=== PATIENT | female | born 1985 | race Hispanic/Latino ===

== ENCOUNTER 2019-11-28 12:06 | Observation (INO) | payer BC, OTHER ==
[2019-11-28 12:45] VITALS: BP 111/72; TEMP 99; BMI 34.1
[2019-11-28] MEDS ORDERED: Lactated Ringer's 1,000 ML IV SCH (12:45)
[2019-11-28] MEDS ORDERED: Dextrose 5%-Lactated Ringers 1,000 ML IV SCH (12:45)
[2019-11-28] MEDS ORDERED: hydrALAZINE 20 MG/ML VIAL SLOW IVP PRN ×2 (12:45→16:17)
[2019-11-28] MEDS ORDERED: Betamet Acet/Betamet Na Ph 30 MG/5 ML VIAL IM SCH (12:45)
[2019-11-28] MEDS ORDERED: Ondansetron PF 4 MG/2 ML Vial IVP PRN (16:17)
[2019-11-28 18:39] LABS: Hemoglobin 12.3 g/dL (12.0-16.0); Mean Corpuscular HGB CONC 33.5 g/dL (32.0-36.0); Mean Corpuscular Hemoglobin 28.2 pg (27.0-31.0); Mean Corpuscular Volume 84.3 fL (78.0-98.0); Mean Platelet Volume 10.1 fL (7.4-10.4); Platelet Count 194 thou/uL (130-400); RBC Distribution Width 13.9 % (11.5-14.5); Red Blood Cell (RBC) Count 4.34 mill/uL (4.20-5.40); White Blood Cell (WBC) Count 10.4 thou/uL (4.8-10.8)
[2019-11-28 19:17] LABS: Syphilis Antibody Nonreactive (Nonreactive); Syphilis Antibody Index 0.09 S/CO (<1.00 Non-Reactive)
[2019-11-28 19:23] LABS: HBSAg Index 0.28 S/CO (0-0.99); Hep B Surf Ag Non-Reactive S/CO (NonReactive)
[2019-11-28] MEDS ORDERED: Morphine 10 MG/ML VIAL IM SCH (19:30)
[2019-11-28] MEDS ORDERED: Morphine 4 MG/ML VIAL SLOW IVP SCH (19:30)
[2019-11-28] MEDS ORDERED: Promethazine HCl 25 MG/ML VIAL IM SCH (19:45)
--- NOTE | 2019-11-29 09:05 | HP ---
PRIMARY PLANNING INTERN: Dr. Lisa Regalado. CHIEF COMPLAINT: Abdominal pain. HISTORY OF PRESENT ILLNESS: The patient is a 34-year-old, G3, P2 female with an intrauterine at 36 weeks and 2 days, who is presenting from the clinic this morning for concerns of possible labor. The patient has a history of 2 prior C-sections and breech presentation with this . The patient reports that she has been feeling painful contractions about once an hour when she first arrived with contractions more frequently seen on the monitor. On exam in the office, patient was reported to be 3-4 cm dilated. On arrival, the patient confirmed that she experiences painful contractions about once an hour. She denies any vaginal bleeding or leakage of fluid. She denies any recent illness, fever, fall, headache, chest pain, shortness of breath, nausea, vomiting, diarrhea, constipation, hip problems, knee problems, muscle weakness. She denies any vaginal bleeding, leakage of fluid, urinary urgency or frequency. PAST MEDICAL HISTORY: Negative. PAST SURGICAL HISTORY: She has had 2 prior C-sections. SOCIAL HISTORY: Denies drug, alcohol, tobacco use. ALLERGIES: NO KNOWN DRUG ALLERGIES. MEDICATIONS: vitamins. OB LABS: Blood type is O positive. Antibody screen is negative. VDRL is nonreactive. Hepatitis B surface antigen is nonreactive. She is rubella immune. Diabetes screen is 96. Third trimester VDRL nonreactive. She is GBS negative. REVIEW OF SYSTEMS: Per HPI. PHYSICAL EXAMINATION: VITAL SIGNS: Blood pressure 111/72, heart rate of 71, respiratory rate 18, temperature 99.0. GENERAL: She appears to be in no acute distress. She is alert, oriented, cooperative, and pleasant to interact with. HEAD: Normocephalic, atraumatic. LUNGS: Clear to auscultation bilaterally. HEART: Has a regular rate and rhythm. ABDOMEN: Gravid, soft, nontender. EXTREMITIES: Nontender, nonedematous. : On my cervical exam about 7 hours after she had her initial exam with her doctor it was 3, I was unable to assess the internal os due to the difficulty of reaching it as the patient was very posterior, fairly thick cervix, but very soft. Fetus felt to be vertex on digital exam, which was different from the most recent ultrasound. Fetus has a baseline in the 130s with moderate long-term variability, positive 15 x 15 accelerations, no decelerations. Tocometer showing contractions about every 8-12 minutes. Bedside ultrasound confirms vertex presentation. ASSESSMENT AND PLAN: The patient is a 34-year-old female with an intrauterine at 36 weeks and 2 days with a history of 2 prior C-sections and savage. She has no evidence at this time of labor. However, the patient does report on re-evaluation that her contractions are getting stronger. The patient has been placed in observation. She also has been given steroids for lung maturity. If and when patient goes into labor, the plan is for a repeat . Dr. Regalado, her primary provider has been updated. Job ID: [id number]
== END 2019-11-28 21:30 | disposition home health service (06) ==
LOC: L&D 12:06 → INTOOBSV 12:06
PROVIDERS: ADMIT Student in an Organized Health Care Education/Training Program; ATTEND Student in an Organized Health Care Education/Training Program
DX: O47.03 False labor before 37 completed weeks of gestation, third trimester (principal); O34.219 Maternal care for unspecified type scar from previous cesarean delivery; Z3A.36 36 weeks gestation of pregnancy
CPT/HCPCS: 36415; 59025; 85027; 86780; 86850; 86900; 86901; 87340; 96372; 96374; 96376; 99285; G0378; J0702; J2270; J2550

== ENCOUNTER 2019-11-30 16:09 | Day surgery (SDC) | payer OTHER ==
[2019-11-30 16:18] VITALS: BMI 34.1
[2019-11-30] MEDS ORDERED: hydrALAZINE 20 MG/ML VIAL SLOW IVP PRN (17:06)
--- NOTE | 2019-11-30 18:44 | PRG ---
DATE OF SERVICE: 11/30/2019 PRIMARY OB: Dr. Lisa Regalado. CHIEF COMPLAINT: Decreased movement. HISTORY OF PRESENT ILLNESS: The patient is a 34-year-old, G3, P2 female with an intrauterine at 36 weeks and 4 days, presenting to Labor and Delivery with decreased movement. The patient reports the last time she felt her baby moving well was at 4:00 this morning. She woke up around 7 and had breakfast and she is used to having her baby move during the meal times. She has not felt that movement today. She did report that when she had some chocolate, the baby did kick twice, but due to this decreased movement through the day, she has come for evaluation. The patient denies any fever, cough, fall, headache, chest pain, shortness of breath. She had some nausea, but denies any vomiting. She denies any diarrhea, constipation, any new rashes, hip problems, knee problems, or muscle weakness. She denies any vaginal bleeding or leakage of fluid. PAST MEDICAL HISTORY: Negative. PAST SURGICAL HISTORY: Two prior C-sections. SOCIAL HISTORY: Denies drug, alcohol, or tobacco use. ALLERGIES: NO KNOWN DRUG ALLERGIES. MEDICATIONS: vitamins. OB LABS: Blood type is O positive. Antibody screen is negative. VDRL is nonreactive. Hepatitis B surface antigen is nonreactive. She is rubella immune. Diabetes screen is 96. Third trimester VDRL is nonreactive, and she is GBS negative. REVIEW OF SYSTEMS: Per HPI. PHYSICAL EXAMINATION: VITAL SIGNS: Blood pressure 114/60, heart rate of 66, respiratory rate of 18, saturating 98% on room air, temperature 98.8. GENERAL: She appears to be in no acute distress. She is alert, oriented, cooperative, and pleasant to interact with. HEENT: Head is normocephalic and atraumatic. ABDOMEN: Soft, nontender. LUNGS: Breathing is regular. DIAGNOSTIC DATA: heart tracing shows a baseline in the 120s with moderate long-term variability, positive 15 x 15 accelerations. Tocometer showing contractions about every 10 minutes, but not felt by the patient. Bedside ultrasound shows an CECY of 10.5 and fetus in vertex presentation. Placenta is anterior into the patient's left. ASSESSMENT AND PLAN: The patient is a 34-year-old female with an intrauterine at 36 weeks and 4 days, presenting for decreased movement. Her fetus has a reactive NST and category 1 tracing. In addition, the patient has a normal amount of fluid giving us a very reassuring positive modified BPP. The patient has been given reassurance and has been explained the findings. She is being discharged to home and we have reviewed the concept of kick counting that she should have about 10 movements over a 2-hour period, sometime in a 24-hour period each day. The patient is being discharged home, has an appointment on Tuesday with her primary OB, which we have encouraged that she keep. Job ID: [id number]
== END 2019-11-30 17:05 | disposition home health service (06) ==
LOC: L&D/OP 16:09
PROVIDERS: ATTEND Student in an Organized Health Care Education/Training Program
DX: O36.8130 Decreased fetal movements, third trimester, not applicable or unspecified (principal); Z3A.36 36 weeks gestation of pregnancy; Z91.018 Allergy to other foods

== ENCOUNTER 2019-12-16 06:41 | Inpatient (IN) | payer BC, OTHER ==
[2019-12-16 07:10] VITALS: BMI 34.4
[2019-12-16] MEDS ORDERED: hydrALAZINE 20 MG/ML VIAL SLOW IVP PRN ×2 (07:19→11:00)
[2019-12-16] MEDS ORDERED: Ondansetron PF 4 MG/2 ML Vial IVP PRN ×3 (07:19→11:00)
[2019-12-16] MEDS ORDERED: Bicitra 30 ML UDCUP PO SCH (07:30)
[2019-12-16] MEDS ORDERED: Azithromycin 500 MG in Sodium Chloride 0.9% 250 ML 250 ML IVPB SCH (07:30)
[2019-12-16] MEDS ORDERED: Lactated Ringer's 1,000 ML IV SCH (07:30)
[2019-12-16] MEDS: Lactated Ringer's 1,000 ML IV SCH ×2 (07:30→21:01)
[2019-12-16] MEDS ORDERED: CEFAZOLIN 2 GM in Premix Bag 1 BAG IVPB SCH (07:30)
[2019-12-16 07:42] LABS: Hemoglobin 12.6 g/dL (12.0-16.0); Mean Corpuscular HGB CONC 32.3 g/dL (32.0-36.0); Mean Corpuscular Hemoglobin 28.1 pg (27.0-31.0); Mean Platelet Volume 10.9 fL (7.4-10.4); Platelet Count 159 thou/uL (130-400); RBC Distribution Width 14.8 % (11.5-14.5); Red Blood Cell (RBC) Count 4.48 mill/uL (4.20-5.40); White Blood Cell (WBC) Count 9.5 thou/uL (4.8-10.8)
--- NOTE | 2019-12-16 08:06 | PDOC.LDHP ---
Labor and Delivery H&P Chief complaint: contractions HPI: 34yo at 38w6d by LMP here with painful contractions every 5min. Current gestational age (weeks): 38 Due date: 12/24/19 Dating criteria: last menstrual period Grav: 3 Para: 2 Current complications: none Abnormal US findings: No Past Medical History: denies Current medications: pre-pedro vitamins Previous surgical history: low tranverse CS Allergies/Adverse Reactions: Allergies Allergy/AdvReac Type Severity Reaction Status Date / Time mushroom Allergy Rash Verified 12/16/19 07:06 Social history: none - Physical Exam Vital signs reviewed and normal: yes General: NAD Heart: RRR Lungs: CTAB Abdomen: gravid Extremeties: no edema FHT: category 1 [place] contractions every: 5min - Vaginal Exam cm dilated: 6 Effacement: 90% Station: -2 - OB Labs RH: positive Antibody Screen: negative HIV: negative RPR: negative HEPSAg: negative 1 hour GCT: negative GBS: negative Urine drug screen: negative Rubella: immune - Assessment L&D Assessment: term patient in labor - Plan Plan: admit to L&D, to OR for section, informed consent obtained, anesthesia consult for pain management
--- NOTE | 2019-12-16 08:09 | PDOC.OPDEL ---
OB Operative/Delivery Note Delivery Dr/Surgeon: Fabricio Assist: Ciera, PGY3 Pre-Delivery Diagnosis: active labor Procedure/Post Delivery Dx: repeat low transverse CS Weeks gestation: 38 Anesthesia: spinal - Additional Findings/Plan Placenta delivered: spontaneous findings: low transverse hysterotomy without extension, normal uterus, normal tubes, normal ovaries Post delivery plan: routine recovery
[2019-12-16 08:12] LABS: HBSAg Index 0.16 S/CO (0-0.99); Hep B Surf Ag Non-Reactive S/CO (NonReactive); Syphilis Antibody Nonreactive (Nonreactive); Syphilis Antibody Index 0.08 S/CO (<1.00 Non-Reactive)
[2019-12-16] MEDS ORDERED: MORPHINE 5 MG/10 ML PF VIAL ONE (08:14)
[2019-12-16] MEDS ORDERED: PHENYLEPHRINE-NS 100 MCG/ML 10 ML SYRINGE ONE (08:14)
[2019-12-16] MEDS ORDERED: Oxytocin 10 UNITS/ML VIAL ONE ×2 (08:14→08:50)
[2019-12-16] MEDS: Ketorolac Tromethamine 30 MG/ML VIAL IVP PRN (10:30)
[2019-12-16] MEDS ORDERED: Ketorolac Tromethamine 30 MG/ML VIAL ONE (10:30)
[2019-12-16] MEDS ORDERED: Meperidine HCl/PF 25 MG/ML VIAL SLOW IVP PRN (10:31)
[2019-12-16] MEDS ORDERED: HYDROmorphone 2 MG/ML VIAL SLOW IVP PRN (10:31)
[2019-12-16] MEDS ORDERED: L&D-Morphine 4 MG/ML VIAL SLOW IVP PRN (10:31)
[2019-12-16] MEDS ORDERED: Promethazine HCl 25 MG SUPP PR PRN (10:31)
[2019-12-16] MEDS ORDERED: Ondansetron HCl/PF 4 MG/2 ML Vial IVP PRN (10:31)
[2019-12-16] MEDS ORDERED: Naloxone HCl 0.4 mg/ml Vial IVP PRN ×2 (10:31)
[2019-12-16] MEDS ORDERED: Naloxone HCl 0.4 mg/ml Vial IV PRN (10:31)
[2019-12-16] MEDS ORDERED: diphenhydrAMINE 50 MG/ML VIAL IVP PRN (10:31)
[2019-12-16] MEDS ORDERED: Promethazine HCl 25 MG/ML VIAL IM PRN ×2 (10:31→11:00)
[2019-12-16] MEDS ORDERED: Ketorolac Tromethamine 30 MG/ML VIAL IVP SCH (10:45)
[2019-12-16] MEDS ORDERED: Communication Order-Pharmacy FS SCH (10:45)
[2019-12-16] MEDS ORDERED: diphenhydrAMINE 25 MG CAP PO PRN (11:00)
[2019-12-16] MEDS ORDERED: Lanolin Ointment 7 GM TUBE TOP PRN (11:00)
[2019-12-16] MEDS ORDERED: HYDROcodone/Acetaminophen 5/325 mg Tablet PO PRN ×2 (11:00)
[2019-12-16] MEDS ORDERED: Zolpidem Tartrate 5 MG TAB PO PRN (11:00)
[2019-12-16] MEDS ORDERED: Acetaminophen 325 MG TAB PO PRN (11:00)
[2019-12-16] MEDS ORDERED: Bisacodyl 10 MG SUPP PR PRN (11:00)
[2019-12-16] MEDS ORDERED: Simethicone Chewable 80 MG TAB PO PRN (11:00)
[2019-12-16] MEDS ORDERED: Adacel (T-DAP) 0.5 ML SYRINGE IM ONE (11:00)
[2019-12-16] MEDS ORDERED: Docusate Calcium (SURFAK) 240 MG CAP PO SCH (11:15)
[2019-12-16] MEDS ORDERED: Prenatal Vitamin 1 TAB PO SCH (11:15)
[2019-12-16] MEDS ORDERED: Ferrous Sulfate 325 MG TAB PO SCH (11:15)
[2019-12-16] MEDS: Ibuprofen 800 MG TAB PO SCH ×2 (17:48→21:00)
[2019-12-16] MEDS: Docusate Calcium (SURFAK) 240 MG CAP PO SCH (21:00)
[2019-12-16] MEDS: Ferrous Sulfate 325 MG TAB PO SCH (21:00)
--- NOTE | 2019-12-17 00:43 | OP ---
DATE OF PROCEDURE: 12/16/2019 PREOPERATIVE DIAGNOSES: 1. Intrauterine at 38 weeks and 6 days. 2. Prior x2. 3. Active labor. POSTOPERATIVE DIAGNOSES: 1. Intrauterine at 38 weeks and 6 days. 2. Prior x2. 3. Active labor. PROCEDURE PERFORMED: Repeat low-transverse section via Pfannenstiel skin incision. ANESTHESIA: Spinal. INFORMATION SERVICES CONSULTANT SURGEON: Dinorah Vang, PGY-3. ESTIMATED BLOOD LOSS: 500 cc. COMPLICATIONS: None. DRAINS: Osei catheter. PATHOLOGY: None. FINDINGS: Female , cephalic presentation, Apgars 8 and 9. Weight is pending. Hysterotomy without extension. Omental adhesions to the rectus muscles. Normal uterus, ovaries, and tubes bilaterally. DESCRIPTION OF PROCEDURE: The patient was taken to the operating room, where spinal anesthesia was obtained without difficulty. The patient was prepped and draped in a sterile fashion in the dorsal supine position with a leftward tilt. After ensuring adequacy of anesthesia, a Pfannenstiel skin incision was made and carried down to the underlying subcutaneous tissue with a knife. The fascia was nicked in the midline with a knife and carried laterally with the Reid scissors. The superior aspect of the fascia was tented with 2 Carlos's and dissected off the rectus with the Bovie. The inferior aspect of the fascia was tented with 2 Carlos's and dissected off the rectus with the Bovie as well down to the pubic symphysis. The rectus was densely adherent in the midline and therefore entry into the peritoneum was possible at the superior most aspect of the midline. This ensured no bowel or vital structures lying behind the rectus. The rectus was then incised in the midline with the Bovie and then layered out, undermining with the hemostat and incising with the Bovie. Once the band of adhesions was broken in the midline, the incision was manually retracted. The Ron O retractor was placed. The vesicouterine peritoneum was incised to bring the bladder down off the lower uterine segment. The lower uterine segment was incised in a transverse fashion and extended with a Bolaños maneuver. The infant's head was brought to the hysterotomy and delivered with fundal pressure atraumatically. The infant's cord was clamped and infant handed to awaiting Angel team. The cord blood was obtained. The placenta was allowed to spontaneously deliver. The uterus was exteriorized, cleared of all clots and debris, and reapproximated with a #1 Monocryl in a running locking fashion with excellent hemostasis noted. The pelvis was copiously irrigated and suctioned. Hemostasis was again noted. The Ron O retractor was removed. The rectus muscles were examined and noted to be hemostatic. The fascia was reapproximated with 0 PDS x2 sutures with excellent reapproximation. The subcutaneous tissue was irrigated and cauterized of any bleeders and reapproximated with a 2-0 plain gut in a running fashion. The skin was closed with 4-0 Monocryl in subcuticular fashion. Dermabond was applied as well as a pressure dressing. The patient tolerated the procedure well. Sponge, lap, and needle counts correct x2. The patient was taken to recovery room in stable condition. The patient received Ancef 2 g prior to the procedure. Job ID: [id number]
[2019-12-17] MEDS: Ketorolac Tromethamine 30 MG/ML VIAL IVP PRN (03:16)
[2019-12-17 06:14] LABS: Hemoglobin 11.9 g/dL (12.0-16.0); Mean Corpuscular HGB CONC 32.3 g/dL (32.0-36.0); Mean Corpuscular Volume 86.7 fL (78.0-98.0); Mean Platelet Volume 10.2 fL (7.4-10.4); Platelet Count 173 thou/uL (130-400); RBC Distribution Width 14.7 % (11.5-14.5); Red Blood Cell (RBC) Count 4.25 mill/uL (4.20-5.40); White Blood Cell (WBC) Count 12.9 thou/uL (4.8-10.8)
--- NOTE | 2019-12-17 07:14 | PDOC.PP ---
Post Progress Note Post Day #: 1 PO intake tolerated: yes Flatus: yes Ambulation: yes Vital Signs (12 hours) Temp Pulse Resp BP Pulse Ox 12/17/19 04:45 98.7 F 63 18 120/71 12/17/19 00:30 99.3 F 72 18 125/67 12/16/19 20:00 99.0 F 61 18 122/67 95 Weight Weight 207 lb - Physical Examination General: NAD Respiratory: non-labored breathing Abdominal: no distention, appropriately TTP Skin: CS incision dry & intact Neurological: no gross focal deficits Psychiatric: normal affect Result Diagrams: 12/17/19 05:38 Additional Labs: Post Labs Blood Type O POSITIVE 12/16/19 07:25 Hep Bs Antigen Non-Reactive S/CO (NonReactive) 12/16/19 07:25 - Assessment/Plan POD1 s/p RCS VSSAF Hgb 11.9 postop, normal, cont PNV Routine postop advances Rh pos RImm Cont postop care
[2019-12-17] MEDS: Docusate Calcium (SURFAK) 240 MG CAP PO SCH ×2 (10:19→21:35)
[2019-12-17] MEDS: Prenatal Vitamin 1 TAB PO SCH (10:20)
[2019-12-17] MEDS: Ferrous Sulfate 325 MG TAB PO SCH (10:20)
[2019-12-17] MEDS: Ibuprofen 800 MG TAB PO SCH ×2 (14:44→21:34)
[2019-12-18] MEDS: Ferrous Sulfate 325 MG TAB PO SCH ×2 (02:26→06:57)
[2019-12-18] MEDS: Ibuprofen 800 MG TAB PO SCH ×3 (02:29→13:58)
[2019-12-18] MEDS: Docusate Calcium (SURFAK) 240 MG CAP PO SCH (07:34)
[2019-12-18] MEDS: Prenatal Vitamin 1 TAB PO SCH (07:34)
[2019-12-18 08:01] VITALS: BP 124/75; TEMP 98
--- NOTE | 2019-12-18 11:32 | PDOC.PP ---
Post Progress Note Post Day #: 2 PO intake tolerated: yes Flatus: yes Ambulation: yes Vital Signs (12 hours) Temp Pulse Resp BP Pulse Ox 12/18/19 07:59 98.0 F 70 20 124/75 97 12/18/19 05:30 97.8 F 56 L 15 119/77 12/18/19 01:15 98.2 F 66 16 115/73 Weight Weight 207 lb - Physical Examination General: NAD Respiratory: non-labored breathing Abdominal: no distention, appropriately TTP Fundus firm & at: umb Skin: CS incision dry & intact Neurological: no gross focal deficits Psychiatric: normal affect Result Diagrams: 12/17/19 05:38 Additional Labs: Post Labs Blood Type O POSITIVE 12/16/19 07:25 Hep Bs Antigen Non-Reactive S/CO (NonReactive) 12/16/19 07:25 - Assessment/Plan POD2 s/p RCS VSSAF Met all postoperative milestones, pain controlled. Rh pos RImm DC home FU 6w
== END 2019-12-18 17:10 | disposition home or self-care (01) | DRG 788 ==
LOC: L&D/OP 06:41 → L&D 08:00 → 3SW 11:28
PROVIDERS: ADMIT Student in an Organized Health Care Education/Training Program; ATTEND Student in an Organized Health Care Education/Training Program
PROC: 10D00Z1 Extraction of Products of Conception, Low, Open Approach (ICD-10-PCS; principal; 2019-12-16)
DX: O34.211 Maternal care for low transverse scar from previous cesarean delivery (principal); Z3A.38 38 weeks gestation of pregnancy; Z37.0 Single live birth
CPT/HCPCS: 36415; 51702; 85027; 86780; 86850; 86900; 86901; 87340; 99285; J0690; J1885; J2274; J2590

== ENCOUNTER 2021-05-14 10:13 | Emergency (ER) | payer OTHER, BC, MEDICAID ==
[2021-05-14] MEDS ORDERED: Fentanyl 100 MCG/2 ML VIAL ONE (10:20)
[2021-05-14] MEDS ORDERED: Ketorolac Tromethamine 30 MG/ML VIAL ONE (12:09)
[2021-05-14] MEDS ORDERED: Cyclobenzaprine 10 MG TAB ONE (12:10)
== END 2021-05-14 13:12 | disposition home or self-care (01) ==
LOC: ERS 10:13
DX: S70.02XA Contusion of left hip, initial encounter (principal); S50.312A Abrasion of left elbow, initial encounter; V19.9XXA Pedal cyclist (driver) (passenger) injured in unspecified traffic accident, initial encounter; Z87.891 Personal history of nicotine dependence
CPT/HCPCS: 96374; 96375; G0390; J1885; J3010